=== PATIENT | male | born 1970 | race African-American/Black ===

== ENCOUNTER 2019-07-03 12:47 | Inpatient (IN) ==
[2019-07-03] MEDS ORDERED: FUROSEMIDE 40 MG/4 ML VIAL IV STA (13:10)
[2019-07-03 13:38] LABS: Basophils % 0.5 % (0.0-0.8); Eosinophils # 0.1 10*3/uL (0.0-0.87); Eosinophils % 0.9 % (0.00-10.9); Hematocrit 40.9 VOL% (42.0-52.0); Hemoglobin 14.3 GM/DL (14.0-18.0); Immature Granulocytes % 0.5 %; Immature Granulocytes Absolute 0.03 #; Lymphocytes # 1.2 10*3/uL (1.4-4.0); Lymphocytes % 21.2 % (21.2-54.2); Mean Corpuscular Volume 88.7 FL (87-102); Mean Platelet Volume 9.5 FL (9.6-12.0); Monocytes % 10.7 % (1.7-12.7); Neutrophils % 66.2 % (38.7-73.9); Platelet Count 272 T/CUMM (130-400); Red Blood Count 4.61 MC/CUMM (3.8-5.5); Red Cell Distribution Width 12.5 % (9.3-17.3); White Blood Count 5.8 T/CUMM (4-12)
[2019-07-03 13:49] LABS: PT Patient Result 10.7 SECS (9.6-12.2); Partial Thromboplastin Time 29.9 SECS (20.8-36.0)
[2019-07-03 14:01] LABS: Free T4 (Free Thyroxine) 1.59 NG/DL (0.76-1.46); Thyroid Stimulating Hormone 1.81 uIU/ml (0.358-3.74)
[2019-07-03 14:07] LABS: Alanine Aminotransferase 212 U/L (16-61); Albumin 3.9 G/DL (3.4-5.0); Alkaline Phosphatase 118 U/L (45-117); Aspartate Amino Transferase 255 U/L (0-37); Blood Urea Nitrogen 26 MG/DL (7-18); CKMB % 2.7 %; Calcium 8.8 MG/DL (8.5-10.1); Estimated Glom Filtration Rate 130 ML/MIN; Glucose 61 MG/DL (74-106); Osmolality,Calculated 249.8 MOS/KG (273-304); Total Protein 7.5 G/DL (6.4-8.3); Troponin I < 0.015 NG/ML (0.00-0.045)
[2019-07-03] MEDS ORDERED: SODIUM CHLORIDE 0.9% 2,000 ML IV STA (14:21)
[2019-07-03] MEDS ORDERED: DEXTROSE 50% 25 GM/50 ML VIAL IV STA (14:24)
[2019-07-03] MEDS ORDERED: DEXTROSE 50% 25 GM/50 ML SYRINGE IV ONE (14:29)
[2019-07-03 15:04] LABS: Apearance,Urine CLEAR (Clear); Bilirubin,Urine Negative (Negative); Blood, Urine Small mg/dL (Negative); Glucose,Urine (UA) Negative (Negative); Ketones,Urine Negative (Negative); Mucus,Urine Occasional /LPF (Occasional); Nitrite,Urine Negative (Negative); Protein,Urine Negative; RBC,Urine 1 /HPF (0-4); Urine Color Straw (Yellow); Urine Specific Gravity 1.005 (1.001-1.035); Urine Urobilinogen < 2.0 EU/DL (0.2-1.0); WBC,Urine 1 /HPF (0-6)
[2019-07-03] MEDS ORDERED: ONDANSETRON 4 MG/2 ML VIAL IV PRN (16:07)
[2019-07-03] MEDS ORDERED: ALBUTEROL 2.5 MG/3 ML NEB RESP TX PRN (16:07)
[2019-07-03] MEDS ORDERED: LACTULOSE 20 GM/30 ML UDCUP PO PRN (16:07)
[2019-07-03] MEDS ORDERED: hydrALAZINE 20 MG/1 ML VIAL IV PRN (16:07)
[2019-07-03 16:39] LABS: Risk Ratio 1.3
[2019-07-03 16:45] LABS: Albumin 3.9 G/DL (3.4-5.0); Bilirubin,Direct 0.34 MG/DL (0.0-0.20); Bilirubin,Total 1.3 MG/DL (0.2-1.0); Total Protein 7.6 G/DL (6.4-8.3)
[2019-07-03 17:34] LABS: Hepatitis B Core IgM Quant 0.15 Index; Hepatitis B Surface Ag Quant < 0.10 Index; Hepatitis B Surface Ag Result Negative (Negative); Hepatitis C Virus Ab Quant < 0.02 Index; Hepatitis C Virus Ab Result Negative (Negative)
[2019-07-03] MEDS: cefTRIAXone 1,000 MG in SYRINGE 1 EACH IV SCH (17:48)
[2019-07-03] MEDS: SODIUM CHLORIDE 0.9% 1,000 ML IV SCH (19:00)
[2019-07-03] MEDS: ENOXAPARIN 40 MG/0.4 ML SYRINGE SUBCUT SCH (21:21)
[2019-07-04] MEDS: SODIUM CHLORIDE 0.9% 1,000 ML IV SCH (04:58)
[2019-07-04 06:27] LABS: Basophils % 0.3 % (0.0-0.8); Eosinophils % 0.7 % (0.00-10.9); Hematocrit 33.5 VOL% (42.0-52.0); Hemoglobin 12.2 GM/DL (14.0-18.0); Immature Granulocytes % 0.2 %; Immature Granulocytes Absolute 0.01 #; Lymphocytes # 1.1 10*3/uL (1.4-4.0); Lymphocytes % 19.1 % (21.2-54.2); Mean Corpuscular HGB Conc 36.4 GM/DL (32-36); Mean Corpuscular Volume 86.8 FL (87-102); Mean Platelet Volume 9.6 FL (9.6-12.0); Monocytes % 9.9 % (1.7-12.7); Neutrophils % 69.8 % (38.7-73.9); Platelet Count 231 T/CUMM (130-400); Red Blood Count 3.86 MC/CUMM (3.8-5.5); Red Cell Distribution Width 12.8 % (9.3-17.3); White Blood Count 5.8 T/CUMM (4-12)
[2019-07-04 07:05] LABS: Bilirubin,Total 1.3 MG/DL (0.2-1.0); Calcium 8.7 MG/DL (8.5-10.1); Osmolality,Calculated 253.4 MOS/KG (273-304); Total Protein 6.3 G/DL (6.4-8.3)
[2019-07-04] MEDS ORDERED: oxyCODONE IR 5 MG TABLET PO PRN (08:34)
[2019-07-04] MEDS: ARIPiprazole 10 MG TABLET PO SCH (10:01)
[2019-07-04] MEDS: PANTOPRAZOLE 40 MG TABLET PO SCH (10:01)
[2019-07-04] MEDS: SODIUM BICARBONATE 650 MG TABLET PO SCH ×2 (10:01→21:28)
[2019-07-04] MEDS: TAMSULOSIN 0.4 MG CAPSULE PO SCH ×2 (13:45→21:28)
[2019-07-04] MEDS: CLOTRIMAZOLE 1% CREAM 15 GM TUBE TOP SCH ×2 (14:28→21:28)
[2019-07-04] MEDS: FUROSEMIDE 40 MG/4 ML VIAL IV SCH (16:51)
[2019-07-04] MEDS: cefTRIAXone 1,000 MG in SYRINGE 1 EACH IV SCH (16:51)
[2019-07-04] MEDS: ENOXAPARIN 40 MG/0.4 ML SYRINGE SUBCUT SCH (21:28)
[2019-07-05 05:19] LABS: Basophils % 0.4 % (0.0-0.8); Eosinophils % 0.4 % (0.00-10.9); Hematocrit 34.9 VOL% (42.0-52.0); Hemoglobin 12.3 GM/DL (14.0-18.0); Immature Granulocytes % 0.5 %; Immature Granulocytes Absolute 0.03 #; Lymphocytes # 1.2 10*3/uL (1.4-4.0); Lymphocytes % 22.3 % (21.2-54.2); Mean Corpuscular HGB Conc 35.2 GM/DL (32-36); Mean Corpuscular Volume 87.7 FL (87-102); Mean Platelet Volume 10.2 FL (9.6-12.0); Monocytes % 10.1 % (1.7-12.7); Neutrophils % 66.3 % (38.7-73.9); Platelet Count 239 T/CUMM (130-400); Red Blood Count 3.98 MC/CUMM (3.8-5.5); Red Cell Distribution Width 12.8 % (9.3-17.3); White Blood Count 5.5 T/CUMM (4-12)
[2019-07-05 05:57] LABS: Albumin 3.2 G/DL (3.4-5.0); Bilirubin,Total 1.1 MG/DL (0.2-1.0); Calcium 8.6 MG/DL (8.5-10.1); Osmolality,Calculated 255.2 MOS/KG (273-304); Total Protein 6.5 G/DL (6.4-8.3)
[2019-07-05 06:46] LABS: Albumin 3.1 G/DL (3.4-5.0); Bilirubin,Direct 0.24 MG/DL (0.0-0.20); Bilirubin,Indirect 0.7 MG/DL (0.0-1.0); Bilirubin,Total 0.9 MG/DL (0.2-1.0); Total Protein 6.5 G/DL (6.4-8.3)
[2019-07-05] MEDS: SODIUM BICARBONATE 650 MG TABLET PO SCH (08:12)
[2019-07-05] MEDS: ARIPiprazole 10 MG TABLET PO SCH (08:12)
[2019-07-05] MEDS: TAMSULOSIN 0.4 MG CAPSULE PO SCH (08:12)
[2019-07-05] MEDS: CLOTRIMAZOLE 1% CREAM 15 GM TUBE TOP SCH (08:12)
[2019-07-05] MEDS: FUROSEMIDE 40 MG/4 ML VIAL IV SCH (08:12)
[2019-07-05] MEDS: PANTOPRAZOLE 40 MG TABLET PO SCH (08:12)
[2019-07-05] MEDS ORDERED: FUROSEMIDE 20 MG TABLET PO SCH (09:00)
[2019-07-05 15:23] VITALS: BP 95/67
== END 2019-07-05 16:47 | DRG 690 ==
LOC: EDUNIT# → N.ED 12:47 → N.EDINP 16:07 → N.3W 17:00
PROVIDERS: ADMIT Internal Medicine; ATTEND Internal Medicine